=== PATIENT | female | born 1960 | race Caucasian/White ===

== ENCOUNTER 2025-05-31 10:19 | Emergency (ER) | payer OTHER, SELFPAY ==
[2025-05-31 10:22] VITALS: BP 124/69
--- NOTE | 2025-05-31 10:52 | ED.MUSCINJ ---
HPI-Injury
General
Chief Complaint: Musculo-Skeletal Complaint
Source: patient
Exam Limitations: none
Time Seen by Provider: 05/31/25 10:36
History of Present Illness-Injury
Initial Injury comments:
65-year-old female presents complaining of right knee pain. This started yesterday and got worse today. The pain is made worse with rest and initial motion but tends to improve as she continues to move. She runs 5 times a week. She ran 3 miles
yesterday and also cut the grass. No known injury. No fevers rashes or tick bites. No other complaints
Past History
Past History
ED Past Medical History: None; Negative Asthma, HTN, Hypercholesterolemia or NIDDM
ED Past Surgical History: None
Social History
Tobacco: Smoker
Alcohol: Occasional
Personal:
Living: with family
Phy Exam
Physical Exam
Physical Exam:
General: Well-appearing female no acute distress
Musculoskeletal exam: Right knee without effusion able to fully extend the knee flexion to 90 degrees slightly tender over the anterior medial knee just medial to the patellar tendon. Posterior joint line is nontender. Knee is stable to ligament
exam
Skin is warm without overlying erythema
Injury Course
Orders/Labs/Results
Orders:
Orders
05/31/25 10:25
CR Knee- Right 4 Or More View* Urgent
Comment:
Reason For Exam: Knee pain, no known injury
05/31/25 10:51
Knee Immobilizer Right-Treatme ONCE
MDM/Problems Addressed
Differential Diagnosis Includes:
Right knee pain. Consider sprain versus strain versus tendinitis or bursitis. X-rays were performed and are negative for significant DJD or fracture. Patient having considerable symptoms Ralph placed in knee immobilizer. No concern for septic
arthritis. Will have her follow-up with orthopedics and have her take NSAIDs. Stable for discharge
*Pulse Oximetry
SaO2: 99
Oxygen Mode of Delivery: Room air
Patient hypoxic: no
*Critical Care Note
Total Time (30-74mins, 75-104mins- exclusive of procedures): Not Applicable
ED Attending Note
-
Portions of this chart may have been created with voice recognition software.� Occasional wrong word or��sound alike� substitutions may have occurred due to the inherent limitations of voice recognition software.
Discharge Plan
Departure
Patient Disposition: Home (Routine Discharge)
Date of Disposition: 05/31/25
Time of Disposition: 10:54
Patient with high blood pressure during this ER visit?: No
Discharge Problem:
Knee sprain
Instructions: Muscle and Bone Pain (DC)
Prescriptions:
No Action
meclizine 25 MG tablet
25 mg PO Q8HPRN PRN (Reason: Dizziness/Vertigo) Qty: 12 0RF
ondansetron 4 MG tablet,disintegrating
4 mg PO Q8HPRN PRN (Reason: Nausea/Vomiting) Qty: 10 0RF
Referrals:
Dmitry Wright MD [Active, Orthopedics]
Activity Restrictions/Additional Instructions:
Use brace for support. Use ibuprofen if needed for pain. Return here if worse otherwise follow-up with orthopedics
Interventions
Interventions:
*Risk Screen - Suicide Last Done: 05/31/25 10:34
*General Assessment Last Done: 05/31/25 10:34
*Neglect/Abuse Screening Last Done: 05/31/25 10:34
*ED COVID-19 Vaccine History Last Done: 05/31/25 10:34
ED-Musculoskeletal Assessment Last Done: 05/31/25 10:34
Discharge Date and Time
Print Language: TOGOLESE
== END 2025-05-31 11:26 | disposition home or self-care (01) ==
LOC: EMR 10:19
PROVIDERS: EMERGENCY PHYSICIAN Emergency Medicine; FAMILY PHYSICIAN Family Medicine
DX: S83.91XA Sprain of unspecified site of right knee, initial encounter (principal); X58.XXXA Exposure to other specified factors, initial encounter; F17.200 Nicotine dependence, unspecified, uncomplicated
CPT/HCPCS: 99283; 73564

== ENCOUNTER 2025-11-09 12:59 | Emergency (ER) | payer SELFPAY ==
[2025-11-09 13:25] VITALS: BP 120/87
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
== END 2025-11-09 15:21 | disposition home or self-care (01) ==
LOC: EMR 12:59
PROVIDERS: EMERGENCY PHYSICIAN Emergency Medicine
DX: M54.6 Pain in thoracic spine (principal); S80.01XA Contusion of right knee, initial encounter; V49.40XA Driver injured in collision with unspecified motor vehicles in traffic accident, initial encounter; Y92.410 Unspecified street and highway as the place of occurrence of the external cause; F17.200 Nicotine dependence, unspecified, uncomplicated
CPT/HCPCS: 99284; 70450; 72072